=== PATIENT | female | born 1995 | race Caucasian/White ===

== ENCOUNTER 2019-05-07 18:28 | Emergency (ER) | payer MEDICAID ==
[~2019-05-07] VITALS: Ht 162.6 cm; Wt 88.5 kg
[2019-05-07 18:42] VITALS: Ht 162.6 cm; Wt 88.5 kg
[2019-05-07 20:10] VITALS: BP 125/78
== END 2019-05-07 20:10 | disposition home or self-care (01) ==
LOC: ED 18:28
DX: L73.2 Hidradenitis suppurativa (principal)
CPT/HCPCS: J2001

== ENCOUNTER 2019-05-10 16:22 | Emergency (ER) | payer MEDICAID ==
[~2019-05-10] VITALS: Ht 162.6 cm; Wt 89.8 kg
[2019-05-10 16:32] VITALS: Ht 162.6 cm; Wt 89.8 kg
[2019-05-10 17:59] VITALS: BP 128/81
== END 2019-05-10 17:59 | disposition home or self-care (01) ==
LOC: ED 16:22
DX: L02.411 Cutaneous abscess of right axilla (principal)